=== PATIENT | male | born 1935 | race Caucasian/White ===

== ENCOUNTER 2017-03-03 13:22 | Emergency (ER) | payer MEDICARE ==
--- NOTE | ~2017-03-03 | CT71 ---
[facility] A Service of [facility] RADIOLOGY TEXT RESULTS PATIENT: LUCHO JACKSON LOCATION: [facility] : 31 UNIT #: [id number] AGE: [address]: José Miguel Peters MD SEX: M ORDER DR: [id number] [facility] [address] [place], [place] [address] [id number] MR#: [id number] Acc #: [id number] NAME: LUCHO JACKSON. : 1935 SEX: M STUDY DATE/TIME: 03/03/2017 14:22 UNIT: [facility] ROOM: STUDY DESCRIPTION: CT Head Wo Contrast Attending Physician: José Miguel Peters M.D. Ordering Physician: José Miguel Peters M.D. Primary Care Physician: Ann Santos M.D. MEDICAL IMAGING REPORT This report is preliminary unless electronic signature is present EXAM Head CT without HISTORY Fell off a stool and hit the back of the head 12:30 today. Head pain, lost balance, on blood thinners. This CT exam was performed with one or more of the following radiation dose reduction techniques: automatic exposure control, adjustment of mA and/or kV according to patient size, and iterative reconstruction. COMMENT Routine noncontrast head CT is reviewed. Prior from 12/14/2015. There is no displaced calvarial fracture. Mucosal disease in the right sphenoid sinus and ethmoid air cells but no air-fluid level in the visualized paranasal sinuses. There is fluid or inflammatory change in the left mastoid air cells inferiorly. There are vascular calcifications at the base of the brain. Small focus of low attenuation in the right posterior saldaña radiata unchanged likely due to small vessel disease. Other smaller areas of white matter low attenuation likely due to small vessel disease. There is mild generalized atrophy. There is no extraaxial fluid collection. There is no evidence for acute intracranial hemorrhage. No hydrocephalus. No intracranial mass effect. Basilar cisterns are patent. The patient has had a scleral buckling procedure on the left. IMPRESSION No acute intracranial injury. Atrophy and probable sequelae of small vessel disease. [facility] A Service of [facility] RADIOLOGY TEXT RESULTS PATIENT: LUCHO JACKSON LOCATION: [facility] #: [id number] : [birth year] UNIT #: [id number] AGE: [address]: José Miguel Peters MD SEX: M ORDER DR: Dictated by... Frances Sexton M.D. THIS IS AN ELECTRONICALLY VERIFIED REPORT Frances Sexton M.D. at 03/04/2017 7:37 AM ANA MARIA/carlos alberto TD: 03/04/2017 04:49 JOB #: [id number] MEDICAL IMAGING REPORT Page 1 of 1 COPY
[~2017-03-03 13:22] MED LIST: ACETAMINOPHEN500 M2 PO; CLOPIDOGREL75 MG PO; CRESTOR5 MG PO; ELIQUIS5 MG PO; FENOFIBRATE120 MG; LORTAB 5/500 TA1 TA1 PO; METOPROLOL TAR25 MG PO; NITROSTAT0.4 MG SL; RAMIPRIL2.5 M1 PO; RANEXA500 MG PO; TYLENOL/CODEINE1 TA1 PO
== END 2017-03-03 15:10 | disposition home or self-care (01) ==
LOC: CED 13:22
DX: S09.90XA Unspecified injury of head, initial encounter (principal); S00.03XA Contusion of scalp, initial encounter; I10 Essential (primary) hypertension; W19.XXXA Unspecified fall, initial encounter; Y92.89 Other specified places as the place of occurrence of the external cause
CPT/HCPCS: 70450; 99284